=== PATIENT | female | born 1960 | race Caucasian/White ===

== ENCOUNTER 2020-08-27 08:59 | Outpatient (CLI) | payer BC, SELFPAY ==
--- NOTE | ~2020-08-27 | MM_ITS ---
EXAMINATION: MM screening [facility] BI w wagner HISTORY: Screening mammogram TECHNIQUE: Craniocaudal and mediolateral oblique 3-D tomosynthesis images were obtained and synthetic 2-D images were generated. CAD analysis was submitted and interpreted. COMPARISON: 07/24/2019, 10/12/2016, 05/20/2015 bilateral digital screening mammogram examinations BREAST PARENCHYMAL COMPOSITION: There are scattered areas of fibroglandular density. FINDINGS: There is no evidence of suspicious mass, calcification, or architectural distortion to sugg est malignancy in either breast. There has been no suspicious interval change. IMPRESSION: 1. No mammographic evidence of malignancy. 2. Recommend routine screening mammography in one year. BI-RADS Category 1: Negative Reviewed, dictated and finalized at location A. [employer]
== END 2020-08-27 09:00 | disposition home or self-care (01) ==
LOC: ANHIMG 09:01
PROVIDERS: PCP Obstetrics & Gynecology; Visit Provider Obstetrics & Gynecology
DX: Z12.31 Encounter for screening mammogram for malignant neoplasm of breast (principal)
CPT/HCPCS: 77063; 77067

== ENCOUNTER 2020-10-03 00:37 | Outpatient (CLI) | payer BC, SELFPAY ==
[2020-10-03 18:38] LABS: SARS-CoV-2 RNA PCR Negative
== END 2020-10-03 00:38 | disposition home or self-care (01) ==
LOC: ANHCOVIDDT 00:37
PROVIDERS: Visit Provider Internal Medicine Gastroenterology
DX: Z01.818 Encounter for other preprocedural examination (principal); Z20.828 Contact with and (suspected) exposure to other viral communicable diseases
CPT/HCPCS: C9803; U0003

== ENCOUNTER 2020-10-06 00:47 | Day surgery (SDC) | payer BC, SELFPAY ==
[2020-09-19 08:31] VITALS: BMI 28.1
--- NOTE | 2020-10-06 06:55 | P.PNAN_ITS ---
Anes - Initial Pre Proc Eval Procedure: Operation Date: 10/06/20 08:30 Proposed Procedures p Screening Colonoscopy - Claus Chua MD Date/Time: 10/06/20 06:55 Surgeon: Claus Chua MD Pre Op Diagnosis: neoplasm screening Patient Data Age: 60 Gender: F Height: 1.73 m Weight: 84 kg Allergies Allergy/AdvReac Type Severity Reaction Status Date / Time No Known Allergies Allergy Verified 10/06/20 07:26 Home Medications Medication Instructions Recorded Confirmed Type polyethylene glycol 3350 17 gram 238 g PO ONCE #1 ea 08/26/20 Rx oral powder packet calcium carbonate-simethicone 1 tablet PO PRN PRN 09/19/20 09/19/20 History [Tums Anti-Gas/Antacid] cetirizine [Zyrtec] 10 mg PO DAILY PRN 09/19/20 09/19/20 History Patient hx anesthesia problems: none Family hx anesthesia problems: none [facility] Past Medical History Medical History (Updated 10/02/20 @ 08:15 by Elliot Pa DO) GERD (gastroesophageal reflux disease) Migraine Social History Social History Years smoked: 10 Smoking status: Former smoker Tobacco type: cigarettes Alcohol intake: current Alcohol use details: DRINKS A BOTTLE OR 2 OF WINE PER WEEK Substance use: current Substance use type: marijuana Last use: 09/18/2020 Living arrangements: alone Spiritual care concerns: No Anes - Eval Final PreProcedure Day of Procedure 10/06/20 06:55 Patient weight: overweight Heart: regular rate and rhythm Lungs: clear to auscultation and normal air movement Airway: Mallampati scale class II Neurological: alert and oriented Last oral intake: >/= 8 hours ASA classification: II Emergent: no Anesthetic plan: proceed Anesthesia type and monitoring: general GIVS and standard monitoring Informed Consent: The patient's anesthetic plan and its attendant risks and benefits were discussed with the patient/family/POA. Questions were solicited and answers provided to the satisfaction of the patient/family/POA.
[2020-10-06 07:27] VITALS: BP 132/66; PULSE 72; RESP 18; TEMP 36.9; O2SAT 97; BMI 28.0
[2020-10-06] MEDS: LACTATED RINGERS 1,000 ML 150 ML IV CONT (07:36)
--- NOTE | 2020-10-06 08:22 | PM.HPGS ---
History of Present Illness History of Present Illness Consent: Risks, benefits, and alternatives have been discussed and questions answered. Patient agrees to proceed with procedure. Chief complaint: neoplasm screening Narrative: Shell Hernandez is a 60 year old female with last colonoscopy 7 years, mother had colon cancer Review of Systems Constitutional: Constitutional: Denies headache(s) and Denies weakness Eyes: Eyes: Denies blurry vision ENT: Reports Normal hearing present, Denies headache(s) and Denies neck pain Cardiovascular: Cardiovascular: Denies chest pain and Denies dyspnea Respiratory: Respiratory: Denies dyspnea Gastrointestinal: Gastrointestinal: Reports no additional gastrointestinal complaints Genitourinary: Genitourinary: Denies dysuria Musculoskeletal: Musculoskeletal: Denies neck pain Integumentary/Breasts: Skin/Breast: Denies dry skin Neurologic: Reports Normal hearing present, Denies headache(s) and Denies weakness Psychiatric: Psychiatric: Denies anxiety Endocrine: Endocrine: Denies change in body appearance Hematologic/Lymphatic: Hematologic/Lymphatic: Denies easy bleeding Allergic/Immunologic: Allergic/Immunologic: Denies urticaria PMFSH Past Medical History Medical History (Updated 10/06/20 @ 08:23 by Claus Chua MD) Family history of colon cancer in mother GERD (gastroesophageal reflux disease) Migraine Social History Social History Years smoked: 10 Smoking status: Former smoker Tobacco type: cigarettes Alcohol intake: current Alcohol use details: DRINKS A BOTTLE OR 2 OF WINE PER WEEK Substance use: current Substance use type: marijuana Last use: 09/18/2020 Living arrangements: alone Spiritual care concerns: No Meds Home Medications and Allergies Home Medications Medication Instructions Recorded Confirmed Type polyethylene glycol 3350 17 gram 238 g PO ONCE #1 ea 08/26/20 Rx oral powder packet calcium carbonate-simethicone 1 tablet PO PRN PRN 09/19/20 09/19/20 History [Tums Anti-Gas/Antacid] cetirizine [Zyrtec] 10 mg PO DAILY PRN 09/19/20 09/19/20 History Allergies Allergy/AdvReac Type Severity Reaction Status Date / Time No Known Allergies Allergy Verified 10/06/20 07:26 Vital Signs Vital Signs - 24 hr 10/06/20 07:27 Temperature 98.5 F Pulse Rate 72 Respiratory Rate 18 Blood Pressure 132/66 Pulse Oximetry 97 Exam Const: General: comfortable and no acute distress HENMT: General nose exam: Normal nares present Eyes: General: appearance normal, both eyes and all related structures Neck: Neck: no JVD Resp: Auscultation: clear to auscultation bilaterally Cardio: Rate: regular rate Rhythm: regular rhythm GI: Inspection: non-distended GI Palp: Yes Soft to palpation Skin: General skin exam: normal color Neuro: General: gait normal Speech: normal speech Extrem: General: normal to inspection Psych: Mental Status: mental status grossly normal Assessment and Plan Assessment and plan (1) Family history of colon cancer in mother: Code(s): Z80.0 - Family history of malignant neoplasm of digestive organs Status: Acute Assessment and Plan: will proceed with colonoscopy
[2020-10-06 08:55] VITALS: BP 119/66; PULSE 66; RESP 22; O2SAT 98
[2020-10-06 09:05] VITALS: BP 118/73; PULSE 62; RESP 12; O2SAT 99
[2020-10-06 09:15] VITALS: BP 135/77; PULSE 63; RESP 22; O2SAT 100
== END 2020-10-06 09:22 | disposition home or self-care (01) ==
PROVIDERS: Referring Provider Obstetrics & Gynecology; Visit Provider Internal Medicine Gastroenterology
PROC: 0DJD8ZZ Inspection of Lower Intestinal Tract, Via Natural or Artificial Opening Endoscopic (ICD-10-PCS; CPT 45378; principal; 2020-10-06 08:30)
DX: Z12.11 Encounter for screening for malignant neoplasm of colon (principal); K57.30 Diverticulosis of large intestine without perforation or abscess without bleeding; K64.8 Other hemorrhoids; Z80.0 Family history of malignant neoplasm of digestive organs; K21.9 Gastro-esophageal reflux disease without esophagitis; Z87.891 Personal history of nicotine dependence; F12.90 Cannabis use, unspecified, uncomplicated
CPT/HCPCS: 45378; J2704; J7120